=== PATIENT | female | born 1935 | race Caucasian/White ===

== ENCOUNTER 2020-10-28 17:26 | Inpatient (IN) | payer MEDICARE ==
[~2020-10-28] VITALS: Ht 167.6 cm; Wt 81.6 kg
[~2020-10-28 17:26] MED LIST: CYCLOBENZAPRINE10 MG PO
[2020-10-28] MEDS ORDERED: AMLODIPINE BESY10 MG PO (20:58)
[2020-10-28] MEDS ORDERED: AMITRIPTYLINE H25 MG PO (21:00)
[2020-10-28] MEDS ORDERED: ELIQUIS5 MG PO (21:00)
[2020-10-28] MEDS ORDERED: MYRBETRIQ50 MG PO (21:01)
[2020-10-29 05:24] LABS: HEMOGLOBIN 13.7 gm/dl (12.3-15.3); RED BLOOD COUNT 4.3 M/UL (4.00-5.10); WHITE BLOOD COUNT 7.9 K/UL (4.5-11.0)
[2020-10-29 05:46] LABS: BUN/CREATININE RATIO 28 (0-10)
[2020-10-29] MEDS ORDERED: K-DUR TAB 10 M10 MEQ PO (14:38)
[2020-10-29] MEDS ORDERED: MACROBID 100 M100 M1 PO (14:39)
[2020-10-29] MEDS ORDERED: LUMIGAN 0.01%2.5 ML EYEBOTH (14:39)
[2020-10-29] MEDS ORDERED: COZAAR100 MG PO (14:41)
[2020-10-29] MEDS ORDERED: ZYRTEC10 MG PO (14:42)
[2020-10-29] MEDS ORDERED: FLONASE 0.05% N16 GM (14:42)
[2020-10-29] MEDS ORDERED: VOLTAREN ARTHRI20 GM TOP (14:42)
[2020-10-29] MEDS ORDERED: MECLIZINE HCL25 MG PO (14:43)
[2020-10-29] MEDS ORDERED: HYDROCHLOROTHIA25 MG PO (20:59)
[2020-10-30 02:57] LABS: HEMOGLOBIN 12.4 gm/dl (12.3-15.3); RED BLOOD COUNT 3.91 M/UL (4.00-5.10); WHITE BLOOD COUNT 7.7 K/UL (4.5-11.0)
[2020-10-30 03:11] LABS: BUN/CREATININE RATIO 22 (0-10)
[2020-10-30 14:12] LABS: RED BLOOD COUNT 4.04 M/UL (4.00-5.10)
[2020-10-30 14:33] LABS: WHITE BLOOD COUNT 14.9 K/UL (4.5-11.0)
[2020-10-30 14:45] LABS: BUN/CREATININE RATIO 22 (0-10)
[2020-10-31 04:34] LABS: HEMOGLOBIN 11.2 gm/dl (12.3-15.3)
[2020-10-31 04:42] LABS: RED BLOOD COUNT 3.49 M/UL (4.00-5.10); WHITE BLOOD COUNT 9.8 K/UL (4.5-11.0)
[2020-10-31 04:53] LABS: BUN/CREATININE RATIO 29 (0-10)
--- NOTE | 2020-10-31 18:03 | NUR ---
OK TO LEAVE CAST CATH IN ONE MORE NIGHT PER DR GUERRERO PER PT REQUEST DUE TO PAIN AND NAUSEA UPON MOVEMENT
[2020-11-01 02:31] LABS: HEMOGLOBIN 10.4 gm/dl (12.3-15.3); RED BLOOD COUNT 3.25 M/UL (4.00-5.10)
[2020-11-01 02:35] LABS: WHITE BLOOD COUNT 13.8 K/UL (4.5-11.0)
[2020-11-02 04:59] LABS: HEMOGLOBIN 10.3 gm/dl (12.3-15.3); RED BLOOD COUNT 3.23 M/UL (4.00-5.10)
[2020-11-02 05:00] LABS: WHITE BLOOD COUNT 6.9 K/UL (4.5-11.0)
[2020-11-02] MEDS ORDERED: HYDROCODON-ACE1 EAC4 PO (10:53)
[2020-11-02 11:35] LABS: BUN/CREATININE RATIO 37 (0-10)
[2020-11-04 03:40] LABS: HEMOGLOBIN 9.9 gm/dl (12.3-15.3); RED BLOOD COUNT 3.12 M/UL (4.00-5.10); WHITE BLOOD COUNT 6.5 K/UL (4.5-11.0)
[2020-11-04 04:05] LABS: BUN/CREATININE RATIO 42 (0-10)
[2020-11-05 04:50] LABS: HEMOGLOBIN 10.4 gm/dl (12.3-15.3); RED BLOOD COUNT 3.3 M/UL (4.00-5.10)
[2020-11-05 05:05] LABS: BUN/CREATININE RATIO 39 (0-10)
== END 2020-11-05 23:03 | DRG 480 ==
LOC: M/S 19:15
PROVIDERS: Internal Medicine; Orthopaedic Surgery; Physician Assistant; ADMIT Internal Medicine
PROC: 0QH706Z Insertion of Intramedullary Internal Fixation Device into Left Upper Femur, Open Approach (ICD-10-PCS; principal; 2020-10-30 13:45)
DX: S72.142A Displaced intertrochanteric fracture of left femur, initial encounter for closed fracture (principal); J96.01 Acute respiratory failure with hypoxia; D62 Acute posthemorrhagic anemia; W18.30XA Fall on same level, unspecified, initial encounter; I48.0 Paroxysmal atrial fibrillation; E87.6 Hypokalemia; N32.89 Other specified disorders of bladder; I10 Essential (primary) hypertension; Y93.9 Activity, unspecified; Z90.49 Acquired absence of other specified parts of digestive tract; Z90.710 Acquired absence of both cervix and uterus; Z88.0 Allergy status to penicillin; Z88.2 Allergy status to sulfonamides; Z80.0 Family history of malignant neoplasm of digestive organs; Z59.0 Homelessness
CPT/HCPCS: 36415; 36600; 71045; 73060; 73502; 76000; 80048; 82803; 85025; 85027; 85610; 85730; 93005; 94640; 94664; 94760; 97110; 97110-GP-CQ; 97162; 97166; 97530; 97530-GP-CQ; C1713; J0690; J1100; J2001; J2270; J2405; J2704; J2795; J3010; J3480; J7120; U0002

== ENCOUNTER 2021-09-15 21:04 | Inpatient (IN) | payer MEDICARE, OTHER ==
[~2021-09-15] VITALS: Ht 167.6 cm; Wt 86.2 kg
[~2021-09-15 21:04] MED LIST changes: +AMITRIPTYLINE H25 MG PO; +AMLODIPINE BESY10 MG PO; +ELIQUIS5 MG PO; +FLONASE 0.05% N16 GM; +HYDROCHLOROTHIA25 MG PO; +HYDROCODON-ACE1 EAC4 PO; +K-DUR TAB 10 M10 MEQ PO; +LUMIGAN 0.01%2.5 ML EYEBOTH; +MACROBID 100 M100 M1 PO; +MECLIZINE HCL25 MG PO; +MYRBETRIQ50 MG PO; +VOLTAREN ARTHRI20 GM TOP; +ZYRTEC10 MG PO
[2021-09-16 05:41] LABS: HEMOGLOBIN 12.9 gm/dl (12.3-15.3); RED BLOOD COUNT 4.06 M/UL (4.00-5.10); WHITE BLOOD COUNT 7.9 K/UL (4.5-11.0)
[2021-09-16 06:12] LABS: BUN/CREATININE RATIO 22 (0-10)
[2021-09-16] MEDS ORDERED: ROPINIROLE HC0.25 MG PO (11:38)
[2021-09-16] MEDS ORDERED: AMIODARONE HCL200 MG PO (11:39)
[2021-09-16] MEDS ORDERED: LINZESS145 MCG PO (11:40)
[2021-09-16] MEDS ORDERED: SPIRONOLACTONE25 MG PO (11:41)
[2021-09-16] MEDS ORDERED: CARVEDILOL12.5 MG PO (11:41)
[2021-09-16] MEDS ORDERED: COMBIGAN EYE DRO5 ML EYEBOTH (11:42)
[2021-09-16] MEDS ORDERED: COZAAR 50MG TAB50 MG PO (14:41)
[2021-09-17 03:09] LABS: HEMOGLOBIN 12.7 gm/dl (12.3-15.3); RED BLOOD COUNT 3.93 M/UL (4.00-5.10); WHITE BLOOD COUNT 8.7 K/UL (4.5-11.0)
[2021-09-17 04:09] LABS: BUN/CREATININE RATIO 24 (0-10)
--- NOTE | 2021-09-17 13:17 | NUR ---
patient opens eyes when spoken to, arousable. then goes back to sleep. vital signs wnl
--- NOTE | 2021-09-17 16:58 | NUR ---
DR GROVES making rounds earlier and seen patient with family members in the room. spoken to dr. groves and informed him of patient arousable, open eyes when spoken to and continued to be drowsy since back from surgery. family reported that patient sips lemonade with no difficulty. patient denies pain when asked.
--- NOTE | 2021-09-17 18:03 | NUR ---
informed dr. groves of patient has been sleeping and arousable when spoken to since back on the floor. patient urinary output and received order.
--- NOTE | 2021-09-17 18:34 | NUR ---
received call from phamacist Vikki hameed to administer ancef to patient eventhough patient have pcn allergy
[2021-09-18 03:13] LABS: RED BLOOD COUNT 3.7 M/UL (4.00-5.10)
[2021-09-18 03:16] LABS: WHITE BLOOD COUNT 11.3 K/UL (4.5-11.0)
[2021-09-18 04:39] LABS: BUN/CREATININE RATIO 32 (0-10)
--- NOTE | 2021-09-18 11:49 | NUR ---
episodes of pulse ox below 80's, provided IS and and pulse ox goes back up. family at bedside to assist.
[2021-09-19 03:04] LABS: HEMOGLOBIN 10.4 gm/dl (12.3-15.3); WHITE BLOOD COUNT 10.8 K/UL (4.5-11.0)
[2021-09-19 03:18] LABS: RED BLOOD COUNT 3.23 M/UL (4.00-5.10)
[2021-09-19 04:21] LABS: BUN/CREATININE RATIO 42 (0-10)
[2021-09-20 02:49] LABS: RED BLOOD COUNT 3.1 M/UL (4.00-5.10)
[2021-09-20 03:26] LABS: BUN/CREATININE RATIO 46 (0-10)
[2021-09-20 03:32] LABS: WHITE BLOOD COUNT 7.2 K/UL (4.5-11.0)
[2021-09-22] MEDS ORDERED: DOCUSATE SODIU100 MG PO (18:59)
[2021-09-22] MEDS ORDERED: HYDROCODON-ACE1 EAC2 PO (18:59)
[2021-09-22] MEDS ORDERED: ACETAMINOPHEN325 MG PO (18:59)
[2021-09-23 02:50] LABS: RED BLOOD COUNT 2.81 M/UL (4.00-5.10); WHITE BLOOD COUNT 6.8 K/UL (4.5-11.0)
[2021-09-23] MEDS ORDERED: AMLODIPINE BESYL5 MG PO (09:51)
[2021-09-23] MEDS ORDERED: HYDRALAZINE HCL25 MG PO ×2 (09:51→13:49)
[2021-09-24 03:34] LABS: HEMOGLOBIN 9.4 gm/dl (12.3-15.3); RED BLOOD COUNT 2.9 M/UL (4.00-5.10)
[2021-09-24 03:43] LABS: WHITE BLOOD COUNT 9.1 K/UL (4.5-11.0)
== END 2021-09-24 17:00 | disposition swing bed (61) | DRG 481 ==
LOC: M/S 23:16
PROVIDERS: Internal Medicine; Nurse Practitioner Family; Orthopaedic Surgery; Physician Assistant; ADMIT Internal Medicine Infectious Disease
PROC: 0QS606Z Reposition Right Upper Femur with Intramedullary Internal Fixation Device, Open Approach (ICD-10-PCS; principal; 2021-09-17 09:00)
DX: S72.091A Other fracture of head and neck of right femur, initial encounter for closed fracture (principal); D62 Acute posthemorrhagic anemia; N17.9 Acute kidney failure, unspecified; J98.11 Atelectasis; Z20.822 Contact with and (suspected) exposure to COVID-19; I10 Essential (primary) hypertension; J30.9 Allergic rhinitis, unspecified; R42 Dizziness and giddiness; I16.0 Hypertensive urgency; W01.0XXA Fall on same level from slipping, tripping and stumbling without subsequent striking against object, initial encounter; N28.1 Cyst of kidney, acquired; G25.81 Restless legs syndrome; I48.0 Paroxysmal atrial fibrillation; Z98.890 Other specified postprocedural states; Z79.899 Other long term (current) drug therapy; Z90.49 Acquired absence of other specified parts of digestive tract; Z90.710 Acquired absence of both cervix and uterus; Z88.2 Allergy status to sulfonamides; Z88.0 Allergy status to penicillin; Z82.49 Family history of ischemic heart disease and other diseases of the circulatory system; Y92.009 Unspecified place in unspecified non-institutional (private) residence as the place of occurrence of the external cause; Z79.01 Long term (current) use of anticoagulants
CPT/HCPCS: 36415; 36600; 71045; 73502; 76000; 76705; 80048; 80053; 80076; 82550; 82553; 82565; 82803; 84484; 85025; 85027; 86850; 86900; 86901; 93005; 94660; 94760; 97110; 97110-GP-CQ; 97162; 97166; 97530; 97530-GP-CQ; C1713; J0360; J0592; J0690; J1100; J1650; J1885; J2270; J2370; J2405; J2704; J2795; J3010; J7050; J7120; P9045; P9047; U0002